=== PATIENT | female | born 1975 | race Caucasian/White ===

== ENCOUNTER 2017-08-10 19:53 | Emergency (ER) | payer MEDICAID ==
[~2017-08-10] VITALS: Ht 162.6 cm; Wt 81.0 kg
[2017-08-10 19:58] VITALS: BP 156/101
[2017-08-10] MEDS ORDERED: ketorolac trometh inj. 60 MG/2 ML VIAL IM ONE (21:50)
[2017-08-10] MEDS ORDERED: DICL50TA8 PO (22:01)
== END 2017-08-10 22:15 | disposition home or self-care (01) ==
LOC: ER 19:54
DX: S46.912A Strain of unspecified muscle, fascia and tendon at shoulder and upper arm level, left arm, initial encounter (principal); X50.1XXA Overexertion from prolonged static or awkward postures, initial encounter; Y93.89 Activity, other specified; Y92.89 Other specified places as the place of occurrence of the external cause; Y99.8 Other external cause status
CPT/HCPCS: 96372; 99283; A4565; J1885